=== PATIENT | male | born 1990 | race Caucasian/White ===

== ENCOUNTER 2017-11-02 21:21 | Emergency (ER) | payer OTHER ==
[2017-11-02 21:43] VITALS: BP 135/96; PULSE 57; RESP 20; TEMP 98.3; O2SAT 100
--- NOTE | 2017-11-02 22:22 | C.PDOC ---
History Of Present Illness 27 yo male c/o left 3rd finger pain since this morning after it was hit with a tennis ball. Right hand dominant. No change in sensation. Time Seen by Provider: 11/02/17 21:49 Chief Complaint (Nursing): Upper Extremity Problem/Injury History Per: Patient History/Exam Limitations: no limitations Onset/Duration Of Symptoms: Hrs Current Symptoms Are (Timing): Still Present Past Medical History Vital Signs: Last Vital Signs Temp 98.3 F 11/02/17 21:40 Pulse 57 L 11/02/17 21:40 Resp 20 11/02/17 21:40 BP 135/96 H 11/02/17 21:40 Pulse Ox 100 11/02/17 22:22 Family History: States: Unknown Family Hx - Social History Hx Alcohol Use: No Hx Substance Use: No Review Of Systems Constitutional: Negative for: Fever Neurological: Negative for: Weakness, Numbness Physical Exam - Physical Exam Appears: Well, Non-toxic, No Acute Distress Skin: Normal Color, Warm, Dry Head: Atraumatic, Normacephalic Eye(s): bilateral: Normal Inspection, EOMI Nose: Normal Oral Mucosa: Moist Neck: Normal, Normal ROM, Supple Chest: Symmetrical Respiratory: No Accessory Muscle Use Back: Normal Inspection Extremity: No Normal ROM (decreased ROM), Tenderness ((+) swelling and ecchymosis to the distal phalanx), Capillary Refill (< 2sec), Swelling Extremity: Bilateral: Normal Color And Temperature Pulses: Left Radial: Normal, Right Radial: Normal Neurological/Psych: Oriented x3, Normal Speech, Normal Sensation ED Course And Treatment O2 Sat by Pulse Oximetry: 100 - Other Rad L 3rd finger XR X-Ray: Interpreted by Me, Viewed By Me Interpretation: (+) fx of DIP Progress Note: Finger splint applied by RN. Instructed to follo wup with hand specialist in 1-2 days. Disposition - Disposition Referrals: Ruby Desir MD [Staff Provider] - Disposition: HOME/ ROUTINE Disposition Time: 22:20 Condition: STABLE Additional Instructions: Follow up with the hand specialist in 1-2 days. Return to ER if symptoms persist or worsen. Prescriptions: Ibuprofen [Motrin] 600 mg PO Q6 PRN #20 tab PRN Reason: Pain, Mild (1-3) Instructions: Finger Fracture (DC) Forms: [facility] ([place]) - Clinical Impression Clinical Impression: Finger fracture
--- NOTE | 2017-11-03 09:07 | RAD ---
PROCEDURE: Left middle finger radiographs. HISTORY: finger injury COMPARISON: None. TECHNIQUE: AP radiograph of the left hand, as well as spot oblique and lateral images of left middle finger were obtained. FINDINGS: LEFT MIDDLE FINGER: There is a comminuted appearing intra-articular fracture proximal aspect distal phalanx 3rd finger left hand. Tiny fragments are seen within the dorsolateral soft tissues at the level of the distal margin of the middle phalanx. JOINTS: Normal. SOFT TISSUES: As above. OTHER FINDINGS: None. IMPRESSION: There is an comminuted intra-articular fracture proximal aspect distal phalanx 3rd finger
== END 2017-11-02 23:08 | disposition home or self-care (01) ==
LOC: C.ER 21:21
DX: S62.633A Displaced fracture of distal phalanx of left middle finger, initial encounter for closed fracture (principal); W21.09XA Struck by other hit or thrown ball, initial encounter; Y93.73 Activity, racquet and hand sports